=== PATIENT | female | born 1990 | race Caucasian/White ===

== ENCOUNTER 2018-08-11 06:00 | Day surgery (SDC) | payer MEDICAID ==
[2018-08-10 09:53] LABS: BASOPHILS 0.2 % (0-2); EOSINOPHILS 0.6 % (0-7); HEMATOCRIT 46.7 % (36.0-48.0); HEMOGLOBIN 16.7 g/dL (12-16); IMMATURE GRANULOCYTES 0.1 % (0-5); LYMPHOCYTES 31.8 % (15-50); MCH 35.2 pg (26.0-34.0); MCHC 35.8 g/dL (31.0-37.0); MCV 98.3 fL (80.0-100.0); MONOCYTES 6.8 % (2-11); NEUTROPHILS 60.5 % (40-80); PLATELET COUNT 180 10x3/uL (130-400); RBC 4.75 10x6/uL (4.00-5.40); RDW 12.3 % (11.5-14.5); WBC 8.4 10x3/uL (4.8-10.8)
[2018-08-10 09:54] LABS: CALC OSMOLALITY 275 mosm/kg (275-300); CALCIUM 9.1 mg/dL (8.5-10.1); CARBON DIOXIDE 24.8 mmol/L (21.0-32.0); CHLORIDE - SERUM 101 mmol/L (98-107); CREATININE - SERUM 0.7 mg/dL (0.6-1.3); GLUCOSE 105 mg/dL (74-106); POTASSIUM - SERUM 3.9 mmol/L (3.5-5.1); SODIUM 138 mmol/L (136-145); UREA NITROGEN 13 mg/dL (7-18); eGFR NON AFRICAN AMERICAN > 90 mL/min (90-120)
[~2018-08-11] VITALS: Ht 170.2 cm; Wt 63.5 kg
[~2018-08-11 06:00] MED LIST: CYCLOBENZAPRINE10 MG PO; HYDROCODONE-APA1 TAB PO; IBUPROFEN800 MG PO; LOMOTIL 2.5-0.1 EAC1 PO; PROZAC20 MG PO; TRAZODONE HCL150 MG PO; WELLBUTRIN SR150 MG PO; XANAX0.5 MG PO; XANAX2 MG PO
[2018-08-11 07:00] VITALS: BP 98/55; Ht 170.2 cm; Wt 63.5 kg
[2018-08-11 07:25] LABS: HCG URINE NEGATIVE (NEGATIVE)
[2018-08-11] MEDS ORDERED: HYDROCODON-ACE1 EA10 PO (09:12)
--- NOTE | 2018-08-11 10:45 | NUR ---
PATIENT VOIDED IN TOILET.
--- NOTE | 2018-08-24 09:41 | OP ---
PATIENT NAME: JESENIA RENDON MEDICAL RECORD: [id number] :88 LOCATION:D[facility] ADMISSION DATE: SURGEON: NOEL ALICEA MD DATE OF OPERATION: 08/11/2018 PREOPERATIVE DIAGNOSES: 1. Chronic abdominal pain. 2. Mesh implantation. 3. Tobacco dependence syndrome. POSTOPERATIVE DIAGNOSES: 1. Chronic abdominal pain. 2. Mesh implantation. 3. Tobacco dependence syndrome. PROCEDURE: Removal of periumbilical mesh. SURGEON: Noel Alicea MD SENIOR JAVASCRIPT DEVELOPER: Laura Navarro APRN REPORT OF PROCEDURE: The patient's abdomen was prepped and draped in sterile fashion. A semicircular incision was made on the inferior aspect of the umbilicus. Electrocautery was used to dissect through the subcutaneous tissues and the umbilicus was elevated off of the fascia. The patient had very strong fascial tissue overlying a mesh. We dissected out the 4 Prolene sutures that were holding the mesh in place on all sides. These sutures were left in place for the time being. We opened up the midline fascia overlying the mesh. Once we got down to the mesh, we were able to carefully remove it from the undersurface of the tissues. This mesh was eventually released from the Prolene sutures and released completely from the surrounding fascial tissues on the undersurface of the abdominal wall. Once the mesh was removed, it was sent off for permanent specimen. There were no abnormalities noted in the mesh. The mesh appeared to be intact with no ripping or tearing. There was no sign of any infectious process present and there was no fluid around it. The mesh had a little bit of fatty omentum stuck to it on its undersurface, but otherwise no bowel was present. Once the mesh was removed, we approximated the midline fascia using running #1 loop PDS times 2. We irrigated out the wound with normal saline. The umbilicus was tacked down using interrupted 3-0 Vicryl. The subcutaneous tissues were reapproximated with 3-0 Vicryls and the skin was closed with running subcutaneous 5-0 Monocryl. A 10 mL of 0.25% Marcaine plain was infused into the surrounding tissues and the wound was dressed appropriately. COMPLICATIONS: None. CONDITION: Stable. ANESTHESIA: General endotracheal and local. BLOOD LOSS: Minimal. 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
== END 2018-08-11 11:25 | disposition home or self-care (01) ==
LOC: D.OPS 06:00 → D.PAN 08:00 → D.OPS 08:00
PROVIDERS: Surgery
DX: T85.848A Pain due to other internal prosthetic devices, implants and grafts, initial encounter (principal); Y83.8 Other surgical procedures as the cause of abnormal reaction of the patient, or of later complication, without mention of misadventure at the time of the procedure